=== PATIENT | male | born 1960 | race American Indian/Alaskan Native ===

== ENCOUNTER 2021-04-13 09:29 | Inpatient (IN) | payer MEDICARE ==
--- NOTE | 2021-04-13 09:57 | Emergency Department Report ---
HPI - General Chief Complaint: Altered Mental Status Time Seen by Provider: 04/13/21 09:45 - HPI HPI: This is a 60-year-old male who presents to the emergency department from home for evaluation of altered mental status. This patient is not known to myself and does not appear to have been in our emergency department previously. The patient presents with discharge instructions from [facility] in which she was discharged on 04/08. 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 He has a Vas-Cath to the right upper chest and he has some discharge instructions regarding a "draining wound on the chest." The patient has a colostomy. He is currently AAO x1 to name only. I spoke to the patient's spouse, who is now at bedside, and he was able to give me further information. Patient has a history of COPD but is not oxygen dependent. He has a history of hypertension. The patient went to [facility] recently for evaluation by the patient's general surgeon for the possibility of reversal of his colostomy, that has been there for about 2 to 3 years since a previous partial bowel resection after bowel obstruction. The patient had a previous right upper extremity PICC line in place that was placed earlier at [facility] for TPN and medication administration. However, it appears that the patient may have had an infected PICC line and ended up at [place] for sepsis. The PICC line was removed and the right chest port was placed. The patient's says that he is usually AAO x3 and does ambulate. Starting Monday night and into Monday, the patient started to have progressivel y worsening altered mental status. ED Past Medical Hx - Past Medical History Previous Medical History?: Yes - Social History Smoking Status: Current Every Day Smoker - Medications Home Medications: Home Medications Medication Instructions Recorded Confirmed Last Taken Type Gabapentin [Neurontin] 800 mg PO TID 04/13/21 04/13/21 Unknown History LORazepam [Ativan] 1 mg PO BID 04/13/21 04/13/21 Unknown History Meloxicam [Mobic] 15 mg PO BID 04/13/21 04/13/21 Unknown History Morphine [Morphine TAB] 30 mg PO Q4HR 04/13/21 04/13/21 Unknown History Omeprazole 40 mg PO QDAY 04/13/21 04/13/21 Unknown History Pantoprazole [Protonix] 40 mg PO QDAY 04/13/21 04/13/21 Unknown History Sucralfate [Carafate] 1 gm PO ACHS 04/13/21 04/13/21 Unknown History Zolpidem [Ambien] 5 mg PO QHS PRN 04/13/21 04/13/21 Unknown History hydrOXYzine HCL [Atarax] 25 mg PO Q6HR PRN 04/13/21 04/13/21 Unknown History labetaloL [Labetalol 200mg TAB] 200 mg PO BID 04/13/21 04/13/21 Unknown History methOCARBAMOL [Robaxin TAB] 750 mg PO BID 04/13/21 04/13/21 Unknown History ED Review of Systems ROS: Stated complaint: ALTERED MENTAL STATUS Other details as noted in HPI Comment: Unobtainable due to pts medical conditions Physical Exam - Physical Exam Vital Signs: Vital Signs 04/13/21 09:44 Temperature 98.6 F Pulse Rate 100 H Respiratory 13 Rate Blood Pressure 119/84 [Left] O2 Sat by Pulse 99 Oximetry Physical Exam: GENERAL: The patient is frail and ill-appearing. HENT: Normocephalic. Atraumatic. Patient has moist mucous membranes. EYES: Extraocular motions are intact. Pupils equal reactive to light bilaterally. NECK: Supple. Trachea is midline. CHEST/LUNGS: Clear to auscultation. There is no respiratory distress noted. HEART/CARDIOVASCULAR: Regular. There is no tachycardia. There is no murmur. ABDOMEN: Abdomen is soft, nontender. Patient has normal bowel sounds. There is no abdominal distention. SKIN: Skin is warm and dry. NEURO: Patient is awake but confused, AAO x1. Follows some commands. MUSCULOSKELETAL: There is no obvious deformity. ED Course Vital Signs 04/13/21 09:44 Temperature 98.6 F Pulse Rate 100 H Respiratory 13 Rate Blood Pressure 119/84 [Left] O2 Sat by Pulse 99 Oximetry ED Medical Decision Making - Lab Data Result diagrams: 04/13/21 10:28 04/13/21 10:28 Lab Results 04/13/21 04/13/21 04/13/21 Range/Units 10:28 10:28 10:28 WBC 6.7 (4.5-11.0) K/mm3 RBC 4.90 (3.65-5.03) M/mm3 Hgb 12.4 (11.8-15.2) gm/dl Hct 38.8 (35.5-45.6) % MCV 79 L (84-94) fl MCH 25 L (28-32) pg MCHC 32 (32-34) % RDW 19.7 H (13.2-15.2) % Plt Count 321 (140-440) K/mm3 Lymph % (Auto) 37.0 H (13.4-35.0) % [place] % (Auto) 15.9 H (0.0-7.3) % Eos % (Auto) 1.4 (0.0-4.3) % Baso % (Auto) 0.8 (0.0-1.8) % Lymph # (Auto) 2.5 (1.2-5.4) K/mm3 [place] # (Auto) 1.1 H (0.0-0.8) K/mm3 Eos # (Auto) 0.1 (0.0-0.4) K/mm3 Baso # (Auto) 0.1 (0.0-0.1) K/mm3 Seg Neutrophils % 44.9 (40.0-70.0) % Seg Neutrophils # 3.0 (1.8-7.7) K/mm3 PT 13.4 (12.2-14.9) Sec. INR 0.96 (0.87-1.13) Sodium 139 (137-145) mmol/L Potassium 5.1 H (3.6-5.0) mmol/L Chloride 99.9 (98-107) mmol/L Carbon Dioxide 23 (22-30) mmol/L Anion Gap 21 mmol/L BUN 19 (9-20) mg/dL Creatinine 1.2 (0.8-1.3) mg/dL Estimated GFR > 60 ml/min BUN/Creatinine Ratio 16 % Glucose 114 H (75-100) mg/dL Lactic Acid (0.7-2.0) mmol/L Calcium 10.2 (8.4-10.2) mg/dL Total Bilirubin 0.30 (0.1-1.2) mg/dL AST 33 (5-40) units/L ALT 27 (7-56) units/L Alkaline Phosphatase 225 H (35-129) units/L Ammonia (25-60) umol/L Total Creatine Kinase 73 (55-170) units/L Total Protein 9.4 H (6.3-8.2) g/dL Albumin 4.0 (3.9-5) g/dL Albumin/Globulin Ratio 0.7 % TSH (0.270-4.200) mlU/mL Plasma/Serum Alcohol (0-0.07) % 04/13/21 04/13/21 04/13/21 Range/Units 10:28 10:28 10:28 WBC (4.5-11.0) K/mm3 RBC (3.65-5.03) M/mm3 Hgb (11.8-15.2) gm/dl Hct (35.5-45.6) % MCV (84-94) fl MCH (28-32) pg MCHC (32-34) % RDW (13.2-15.2) % Plt Count (140-440) K/mm3 Lymph % (Auto) (13.4-35.0) % [place] % (Auto) (0.0-7.3) % Eos % (Auto) (0.0-4.3) % Baso % (Auto) (0.0-1.8) % Lymph # (Auto) (1.2-5.4) K/mm3 [place] # (Auto) (0.0-0.8) K/mm3 Eos # (Auto) (0.0-0.4) K/mm3 Baso # (Auto) (0.0-0.1) K/mm3 Seg Neutrophils % (40.0-70.0) % Seg Neutrophils # (1.8-7.7) K/mm3 PT (12.2-14.9) Sec. INR (0.87-1.13) Sodium (137-145) mmol/L Potassium (3.6-5.0) mmol/L Chloride (98-107) mmol/L Carbon Dioxide (22-30) mmol/L Anion Gap mmol/L BUN (9-20) mg/dL Creatinine (0.8-1.3) mg/dL Estimated GFR ml/min BUN/Creatinine Ratio % Glucose (75-100) mg/dL Lactic Acid 1.40 (0.7-2.0) mmol/L Calcium (8.4-10.2) mg/dL Total Bilirubin (0.1-1.2) mg/dL AST (5-40) units/L ALT (7-56) units/L Alkaline Phosphatase (35-129) units/L Ammonia 42.0 (25-60) umol/L Total Creatine Kinase (55-170) units/L Total Protein (6.3-8.2) g/dL Albumin (3.9-5) g/dL Albumin/Globulin Ratio % TSH 0.614 (0.270-4.200) mlU/mL Plasma/Serum Alcohol (0-0.07) % 04/13/ Range/Units 10:28 WBC (4.5-11.0) K/mm3 RBC (3.65-5.03) M/mm3 Hgb (11.8-15.2) gm/dl Hct (35.5-45.6) % MCV (84-94) fl MCH (28-32) pg MCHC (32-34) % RDW (13.2-15.2) % Plt Count (140-440) K/mm3 Lymph % (Auto) (13.4-35.0) % [place] % (Auto) (0.0-7.3) % Eos % (Auto) (0.0-4.3) % Baso % (Auto) (0.0-1.8) % Lymph # (Auto) (1.2-5.4) K/mm3 [place] # (Auto) (0.0-0.8) K/mm3 Eos # (Auto) (0.0-0.4) K/mm3 Baso # (Auto) (0.0-0.1) K/mm3 Seg Neutrophils % (40.0-70.0) % Seg Neutrophils # (1.8-7.7) K/mm3 PT (12.2-14.9) Sec. INR (0.87-1.13) Sodium (137-145) mmol/L Potassium (3.6-5.0) mmol/L Chloride (98-107) mmol/L Carbon Dioxide (22-30) mmol/L Anion Gap mmol/L BUN (9-20) mg/dL Creatinine (0.8-1.3) mg/dL Estimated GFR ml/min BUN/Creatinine Ratio % Glucose (75-100) mg/dL Lactic Acid (0.7-2.0) mmol/L Calcium (8.4-10.2) mg/dL Total Bilirubin (0.1-1.2) mg/dL AST (5-40) units/L ALT (7-56) units/L Alkaline Phosphatase (35-129) units/L Ammonia (25-60) umol/L Total Creatine Kinase (55-170) units/L Total Protein (6.3-8.2) g/dL Albumin (3.9-5) g/dL Albumin/Globulin Ratio % TSH (0.270-4.200) mlU/mL Plasma/Serum Alcohol < 0.01 (0-0.07) % - Radiology Data Radiology results: report reviewed, image reviewed interpreted by me: Chest x-ray does not show any acute process. There are no pleural effusions, obvious pneumonia and there is no pneumothorax. No widened mediastinum. CT head/brain wo con INDICATION: Altered mental status. TECHNIQUE: All CT scans at this location are performed using CT dose reduction for ALARA by means of automated exposure control. COMPARISON: None available. FINDINGS: There is no evidence of hemorrhage, hydrocephalus, brain edema, or mass effect/mass lesion. There is overall normal brain formation and brain volume for the patient's age. Ventricular and cisternal/sulcal size is normal for age. The included paranasal sinuses and mastoid air cells are clear. The orbits appear unremarkable. IMPRESSION: 1. No acute findings. - Medical Decision Making This patient presents with altered mental status that has been going on over the past few days. The patient's is at bedside and confirms that the patient is altered from his baseline mental status mentation. CT scan of the head without contrast does not show any hemorrhage, large vessel occlusion, or any other acute process. Chest x-ray does not show any pneumonia, pleural effusions, widened mediastinum, pneumothorax, or any other acute process. So far the patient's labs have been mostly unremarkable including CBC, metabolic panel, normal thyroid function, negative troponin, Normal ammonia level. We are still waiting for a urine sample for urinalysis and UDS. The patient will be admitted to the hospital for further evaluation of his altered mental status and/or encephalopathy, and has been accepted for admission by the hospitalist, Dr. Hernandez. Critical Care Time: No Critical care attestation.: If time is entered above; I have spent that time in minutes in the direct care of this critically ill patient, excluding procedure time. ED Disposition Clinical Impression: Encephalopathy acute Altered mental status Qualifiers: Altered mental status type: unspecified Qualified Code(s): R41.82 - Altered mental status, unspecified Disposition: DC09 OP ADMIT IP TO THIS HOSP Is pt being admited?: Yes Condition: Serious Time of Disposition: 13:35
[2021-04-13 10:49] LABS: Basophils # (Auto) 0.1 K/mm3 (0.0-0.1); Basophils % (Auto) 0.8 % (0.0-1.8); Eosinophils # (Auto) 0.1 K/mm3 (0.0-0.4); Eosinophils % (Auto) 1.4 % (0.0-4.3); Hematocrit 38.8 % (35.5-45.6); Hemoglobin 12.4 gm/dl (11.8-15.2); Lymphocytes # (Auto) 2.5 K/mm3 (1.2-5.4); Mean Corpuscular HGB Conc 32 % (32-34); Mean Corpuscular Volume 79 fl (84-94); Monocytes # (Auto) 1.1 K/mm3 (0.0-0.8); Monocytes % (Auto) 15.9 % (0.0-7.3); Platelet Count 321 K/mm3 (140-440); Red Cell Distribution Width 19.7 % (13.2-15.2)
[2021-04-13 10:59] LABS: INR 0.96 (0.87-1.13)
[2021-04-13 11:11] LABS: Alanine Aminotransferase 27 units/L (7-56); BUN/Creatinine Ratio 16; Blood Urea Nitrogen 19 mg/dL (9-20); Calcium 10.2 mg/dL (8.4-10.2); Hemolysis Index 35
--- NOTE | 2021-04-13 11:18 | Cat Scan Report ---
CT head/brain wo con INDICATION: Altered mental status. TECHNIQUE: All CT scans at this location are performed using CT dose reduction for ALARA by means of automated e xposure control. COMPARISON: None available. FINDINGS: There is no evidence of hemorrhage, hydrocephalus, brain edema, or mass effect/mass lesion. There is overall normal brain formation and brain volume for the patient's age. Ventricular and cisternal/sulc al size is normal for age. The included paranasal sinuses and mastoid air cells are clear. The orbits appear unremarkable. IMPRESSION: 1. No acute findings. Signer Name: Monty Scott MD Signed: 04/13/2021 11:13 AM Workstation Name: [id number]
[2021-04-13] MEDS ORDERED: SODIUM CHLORIDE 0.9% 1000 ML 1,000 ML IV ONE (11:24)
[2021-04-13] MEDS ORDERED: LORazepam 2 MG/ML VIAL IV ONE (14:08)
--- NOTE | 2021-04-13 15:54 | XRay Report ---
CHEST 1 VIEW INDICATION / CLINICAL INFORMATION: Altered mental status. COMPARISON: None available. FINDINGS: SUPPORT DEVICES: Right central venous catheter HEART / MEDIASTINUM: No significant abnormality. LUNGS / PLEURA: No significant pulmonary or pleural abnormality. No pneumothorax. ADDITIONAL FINDINGS: No significant additional findings. IMPRESSION: No acute pulmonary or pleural abnormality Signer Name: Gino Mora MD FACR Signed: 04/13/2021 3:49 PM Workstation Name: [id number]
[2021-04-13] MEDS ORDERED: LORazepam 2 MG/ML VIAL ONE (16:24)
[2021-04-13] MEDS ORDERED: hydrOXYzine HCL 25 MG TAB PO PRN (23:07)
--- NOTE | 2021-04-13 23:11 | History and Physical Report ---
History of Present Illness Date of examination: 04/13/21 Date of admission: 04/13/21 13:35 Chief complaint: Altered mental status for 48 hours History of present illness: 60-year-old male presents to emergency department from home for evaluation of altered mental status. Patient has a history of COPD and hypertension. Patient is not on home oxygen. Patient had major bowel resection about 3 years ago. History is not clear but it appears to be small bowel resection secondary to small bowel obstruction and infection. Patient has a ileostomy/colostomy bag. Patient has TPN and medication administration via new ". Patient was recently treated at [place] for line sepsis and PICC line was removed on the right chest post was placed. Patient is morphine tablets 30 mg every 4 hours gabapentin 800 mg 3 times a day and zolpidem 5 mg nightly as needed. Patient is apparently altered and oriented x1 for the last 48 hours. Brought in because of worsening mental status. Patient is alert but not able to tell time place etc. Oriented to his spouse to some extent.. His pulses at the bedside and produce some history. No fever or chills. No urinary incontinence. No dysuria. No cough. Decline in mental status. Patient was apparently able to ambulate till 48 hours ago. The male standing next to the bedside claims that he is the for the last 7 years. - Past Medical History --Previous Medical History?: Yes COPD, hypertension Small bowel resection Malnutrition Chronic pain -Past surgical history --Extensive bowel resection --Right chest port placement - Social History Smoking Status: Current Every Day Smoker -Family history hypertension - Medications Home Medications: Home Medications Medication Instructions Recorded Confirmed Last Taken Type Gabapentin 60-year-old 60-year-old male 800 mg PO TID 04/13/21 04/13/21 Unknown History LORazepam [Ativan] 1 mg PO BID 04/13/21 04/13/21 Unknown History Meloxicam [Mobic] 15 mg PO BID 04/13/21 04/13/21 Unknown History Morphine [Morphine TAB] 30 mg PO Q4HR 04/13/21 04/13/21 Unknown History Omeprazole 40 mg PO QDAY 04/13/21 04/13/21 Unknown History Pantoprazole [Protonix] 40 mg PO QDAY 04/13/21 04/13/21 Unknown History Sucralfate [Carafate] 1 gm PO ACHS 04/13/21 04/13/21 Unknown History Zolpidem [Ambien] 5 mg PO QHS PRN 04/13/21 04/13/21 Unknown History hydrOXYzine HCL [Atarax] 25 mg PO Q6HR PRN 04/13/21 04/13/21 Unknown History labetaloL [Labetalol 200mg TAB] 200 mg PO BID 04/13/21 04/13/21 Unknown History methOCARBAMOL [Robaxin TAB] 750 mg PO BID 04/13/21 04/13/21 Unknown History Review of Systems ROS: Constitutional no weight loss or weight gain no fever or chills HEENT no sore throat no post nasal drip no diplopia Neck no neck stiffness no lymph gland enlargement Chest and lungs no shortness of breath cough or wheezing CVS no chest pain no diaphoresis no palpitations GI no nausea no vomiting no diarrhea Genitourinary system no dysuria no flank pain Musculoskeletal system no muscle pains no joint pains [employer] altered sensorium and unable to walk Skin no rash no itching Psychiatric no depression no homicidal or suicidal tendencies Hematologic no lymphedema or bruising Endocrine no polydipsia no polyuria no cold intolerance no heat intolerance Medications and Allergies Allergies Allergy/AdvReac Type Severity Reaction Status Date / Time No Known Allergies Allergy Unverified 04/14/21 03:58 Home Medications Medication Instructions Recorded Confirmed Last Taken Type Gabapentin [Neurontin] 800 mg PO TID 04/13/21 04/13/21 Unknown History LORazepam [Ativan] 1 mg PO BID 04/13/21 04/13/21 Unknown History Meloxicam [Mobic] 15 mg PO BID 04/13/21 04/13/21 Unknown History Morphine [Morphine TAB] 30 mg PO Q4HR 04/13/21 04/13/21 Unknown History Omeprazole 40 mg PO QDAY 04/13/21 04/13/21 Unknown History Pantoprazole [Protonix] 40 mg PO QDAY 04/13/21 04/13/21 Unknown History Sucralfate [Carafate] 1 gm PO ACHS 04/13/21 04/13/21 Unknown History Zolpidem [Ambien] 5 mg PO QHS PRN 04/13/21 04/13/21 Unknown History hydrOXYzine HCL [Atarax] 25 mg PO Q6HR PRN 04/13/21 04/13/21 Unknown History labetaloL [Labetalol 200mg TAB] 200 mg PO BID 04/13/21 04/13/21 Unknown History methOCARBAMOL [Robaxin TAB] 750 mg PO BID 04/13/21 04/13/21 Unknown History Active Meds: Active Medications Hydroxyzine HCl (Hydroxyzine Hcl 25 Mg Tab) 25 mg PO Q6HR PRN PRN Reason: Itching Labetalol HCl (Labetalol 200 Mg Tab) 200 mg PO BID JONATHAN Miscellaneous Medication (Gabapentin [Neurontin]) 800 mg PO TID JONATHAN Pantoprazole Sodium (Pantoprazole 40 Mg Tab) 40 mg PO QDAY JONATHAN Sucralfate (Sucralfate 1 Gm Tab) 1 gm PO ACHS JONATHAN Zolpidem Tartrate (Zolpidem 5 Mg Tab) 5 mg PO QHS PRN PRN Reason: Sleep Exam - Constitutional Vitals: Temp Pulse Resp BP Pulse Ox 98.6 F 101 H 20 135/81 98 04/13/21 09:44 04/13/21 10:30 04/13/21 17:14 04/13/21 13:46 04/13/21 17:14 General appearance: Present: no acute distress, well-nourished - EENT Eyes: Present: PERRL ENT: hearing intact, clear oral mucosa - Neck Neck: Present: supple, normal ROM - Respiratory Respiratory effort: normal Respiratory: bilateral: CTA (Right chest wall port) - Cardiovascular Heart rate: 78 Rhythm: regular Heart Sounds: Present: S1 & S2. Absent: rub, click - Extremities Extremities: no ischemia, pulses symmetrical, No edema Peripheral Pulses: within normal limits - Abdominal General gastrointestinal: Present: soft, non-tender, non-distended, normal bowel sounds, other (Ileostomy/colostomy bag present) Male genitourinary: Present: normal - Integumentary Integumentary: Present: clear, warm, dry - Musculoskeletal Musculoskeletal: gait normal, strength equal bilaterally - Psychiatric Psychiatric: appropriate mood/affect, intact judgment & insight - Neurologic Neurologic: CNII-XII intact, moves all extremities Results - Labs CBC & Chem 7: 04/13/21 10:28 04/13/21 10:28 Labs: Laboratory Last Values WBC 6.7 K/mm3 (4.5-11.0) 04/13/21 10:28 RBC 4.90 M/mm3 (3.65-5.03) 04/13/21 10:28 Hgb 12.4 gm/dl (11.8-15.2) 04/13/21 10:28 Hct 38.8 % (35.5-45.6) 04/13/21 10:28 MCV 79 fl (84-94) L 04/13/21 10:28 MCH 25 pg (28-32) L 04/13/21 10:28 MCHC 32 % (32-34) 04/13/21 10:28 RDW 19.7 % (13.2-15.2) H 04/13/21 10:28 Plt Count 321 K/mm3 (140-440) 04/13/21 10:28 Lymph % (Auto) 37.0 % (13.4-35.0) H 04/13/21 10:28 [place] % (Auto) 15.9 % (0.0-7.3) H 04/13/21 10:28 Eos % (Auto) 1.4 % (0.0-4.3) 04/13/21 10:28 Baso % (Auto) 0.8 % (0.0-1.8) 04/13/21 10:28 Lymph # (Auto) 2.5 K/mm3 (1.2-5.4) 04/13/21 10:28 [place] # (Auto) 1.1 K/mm3 (0.0-0.8) H 04/13/21 10:28 Eos # (Auto) 0.1 K/mm3 (0.0-0.4) 04/13/21 10:28 Baso # (Auto) 0.1 K/mm3 (0.0-0.1) 04/13/21 10:28 Seg Neutrophils % 44.9 % (40.0-70.0) 04/13/21 10:28 Seg Neutrophils # 3.0 K/mm3 (1.8-7.7) 04/13/21 10:28 PT 13.4 Sec. (12.2-14.9) 04/13/21 10:28 INR 0.96 (0.87-1.13) 04/13/21 10:28 Sodium 139 mmol/L (137-145) 04/13/21 10:28 Potassium 5.1 mmol/L (3.6-5.0) H 04/13/21 10:28 Chloride 99.9 mmol/L (98-107) 04/13/21 10:28 Carbon Dioxide 23 mmol/L (22-30) 04/13/21 10:28 Anion Gap 21 mmol/L 04/13/21 10:28 BUN 19 mg/dL (9-20) 04/13/21 10:28 Creatinine 1.2 mg/dL (0.8-1.3) 04/13/21 10:28 Estimated GFR > 60 ml/min 04/13/21 10:28 BUN/Creatinine Ratio 16 % 04/13/21 10:28 Glucose 114 mg/dL (75-100) H 04/13/21 10:28 Lactic Acid 1.40 mmol/L (0.7-2.0) 04/13/21 10:28 Calcium 10.2 mg/dL (8.4-10.2) 04/13/21 10:28 Total Bilirubin 0.30 mg/dL (0.1-1.2) 04/13/21 10:28 AST 33 units/L (5-40) 04/13/21 10:28 ALT 27 units/L (7-56) 04/13/21 10:28 Alkaline Phosphatase 225 units/L (35-129) H 04/13/21 10:28 Ammonia 42.0 umol/L (25-60) 04/13/21 10:28 Total Creatine Kinase 73 units/L (55-170) 04/13/21 10:28 Total Protein 9.4 g/dL (6.3-8.2) H 04/13/21 10:28 Albumin 4.0 g/dL (3.9-5) 04/13/21 10:28 Albumin/Globulin Ratio 0.7 % 04/13/21 10:28 TSH 0.614 mlU/mL (0.270-4.200) 04/13/21 10:28 Plasma/Serum Alcohol < 0.01 % (0-0.07) 04/13/21 10:28 Short CBC 04/13/21 Range/Units 10:28 WBC 6.7 (4.5-11.0) K/mm3 Hgb 12.4 (11.8-15.2) gm/dl Hct 38.8 (35.5-45.6) % Plt Count 321 (140-440) K/mm3 BMP 04/13/21 10:28 Sodium 139 Potassium 5.1 H Chloride 99.9 Carbon Dioxide 23 BUN 19 Creatinine 1.2 Glucose 114 H Calcium 10.2 Cardiac Enzymes 04/13/21 Range/Units 10:28 Total Creatine Kinase 73 (55-170) units/L Liver Function 04/13/21 Range/Units 10:28 Total Bilirubin 0.30 (0.1-1.2) mg/dL AST 33 (5-40) units/L ALT 27 (7-56) units/L Alkaline Phosphatase 225 H (35-129) units/L Albumin 4.0 (3.9-5) g/dL Urine 04/14/21 Range/Units Unknown Urine Color Yellow (Yellow) Urine pH 6.0 (5.0-7.0) Ur Specific [place] 1.019 (1.003-1.030) Urine Protein <15 mg/dl (Negative) mg/dL Urine Glucose (UA) Neg (Negative) mg/dL - Imaging and Cardiology Chest x-ray: report reviewed CT Scan - head: report reviewed Imaging and Cardiology: Head CT No acute findings Chest x-ray No acute pulmonary or pleural abnormality Young/IV: Voiding Method Condom Catheter Assessment and Plan Advance Directives: Yes (Full code) VTE prophylaxis?: Chemical Plan of care discussed with patient/family: Yes - Patient Problems (1) Encephalopathy acute Current Visit: Yes Status: Acute Plan to address problem: Probably secondary to excessive opiates and Gabapentin. Patient is on morphine 30 mg every 4 hours No clear indication for being on morphine 30 mg every 4 hours Will hold opiates for now IV Tordol for now for moderate pain IV Dilaudid 0.5 mg every 3 for severe pain [facility] protocol for now for withdrawal symptoms Mental health/psych consult No neuro consult at this time Gabapentin dose is decreased from 8 0 mg 3 times a day to 400 mg 3 times a day Physical therapy were requested Patient may need placement for opiate dependence No signs of sepsis No antibiotics were started (2) Opiate dependence Current Visit: Yes Status: Chronic Qualifiers: Complication of substance-induced condition: with perceptual disturbance Plan to address problem: Patient was not started on morphine 30 mg every 4 hours. Patient will be managed with IV Toradol for moderate pain and IV Dilaudid for s evere pain. Gabapentin also decreased from 800 mg 3 times a day to 400 mg 3 times a day. We will get mental health/psych consult. Regarding possible opiate dependence (3) Hyperkalemia Current Visit: Yes Status: Acute Plan to address problem: Mild IV Calcium gluconate for now (4) Hypertension Current Visit: Yes Status: Chronic Qualifiers: Hypertension type: essential hypertension Qualified Code(s): I10 - Essential (primary) hypertension Plan to address problem: Continue labetalol and adjust medications (5) COPD (chronic obstructive pulmonary disease) Current Visit: Yes Status: Chronic Qualifiers: Emphysema type: unspecified Plan to address problem: On DuoNebs as needed (6) Microcytosis Current Visit: Yes Status: Chronic Plan to address problem: Check iron levels (7) Malnutrition Current Visit: Yes Status: Chronic Qualifiers: Protein-calorie malnutrition severity: unspecified severity Plan to address problem: Patient is on TPN because of extensive small bowel resection Dietitian consult requested (8) DVT prophylaxis Current Visit: Yes Status: Acute Plan to address problem: On Heparin
[2021-04-13] MEDS ORDERED: ONDANSETRON 4 MG/2 ML INJ IV PRN (23:15)
[2021-04-13] MEDS ORDERED: METOCLOPRAMIDE 10 MG/2 ML INJ IV PRN (23:15)
[2021-04-13] MEDS ORDERED: ACETAMINOPHEN 325 MG TAB PO PRN (23:15)
[2021-04-13] MEDS: ZOLPIDEM 5 MG TAB PO PRN (23:24)
[2021-04-13] MEDS ORDERED: D5W/0.9% NACL 1,000 ML IV SCH (23:45)
[2021-04-14] MEDS: ZOLPIDEM 5 MG TAB PO PRN (00:25)
[2021-04-14] MEDS ORDERED: CALCIUM GLUCONATE 2,000 MG in SODIUM CHLORIDE 0.9% 100 ML IV ONE (00:36)
[2021-04-14 05:56] LABS: Bilirubin,Urine NEG (Negative); Blood,Urine NEG (Negative); Color,Urine Yellow (Yellow); Mucus,Urine FEW /HPF; Protein,Urine <15 mg/dL mg/dL (Negative); Urobilinogen,Urine < 2.0 mg/dL (<2.0)
[2021-04-14] MEDS ORDERED: LORazepam 2 MG/ML VIAL IV PRN (06:02)
[2021-04-14 06:03] LABS: Amphetamine Screen,Urine Negative; Benzodiazepines Screen,Urine Negative; Cannabinoid Screen,Urine Negative; Cocaine Screen,Urine Negative; Methadone Screen,Urine Negative; Opiate Screen,Urine Negative
[2021-04-14] MEDS ORDERED: HYDROmorphone 1 MG/1 ML INJ IV PRN (06:03)
--- NOTE | 2021-04-14 07:19 | Progress Note ---
Assessment and Plan Assessment and plan: History of present illness: 60-year-old male presents to emergency department from home for evaluation of altered mental status. Patient has a history of COPD and hypertension. Patient is not on home oxygen. Patient had major bowel resection about 3 years ago. History is not clear but it appears to be small bowel resection secondary to small bowel obstruction and infection. Patient has a ileostomy/colostomy bag. Patient has TPN and medication administration via new ". Patient was recently treated at [place] for line sepsis and PICC line was removed on the right chest post was placed. Patient is morphine tablets 30 mg every 4 hours gabapentin 800 mg 3 times a day and zolpidem 5 mg nightly as needed. Patient is apparently altered and oriented x1 for the last 48 hours. Brought in because of worsening mental status. Patient is alert but not able to tell time place etc. Oriented to his spouse to some extent.. His pulses at the bedside and produce some history. No fever or chills. No urinary incontinence. No dysuria. No cough. Decline in mental status. Patient was apparently able to ambulate till 48 hours ago. The male standing next to the bedside claims that he is the for the last 7 years. (1) Encephalopathy acute Current Visit: Yes Status: Acute Plan to address problem: Probably secondary to excessive opiates and Gabapentin. Patient is on morphine 30 mg every 4 hours No clear indication for being on morphine 30 mg every 4 hours Will hold opiates for now IV Tordol for now for moderate pain IV Dilaudid 0.5 mg every 3 for severe pain [facility] protocol for now for withdrawal symptoms Mental health/psych consult No neuro consult at this time Gabapentin dose is decreased from 8 0 mg 3 times a day to 400 mg 3 times a day Physical therapy were requested Patient may need placement for opiate dependence No signs of sepsis No antibiotics were started (2) Opiate dependence Current Visit: Yes Status: Chronic Qualifiers: Complication of substance-induced condition: with perceptual disturbance Plan to address problem: Patient was not started on morphine 30 mg every 4 hours. Patient will be managed with IV Toradol for moderate pain and IV Dilaudid for severe pain. Gabapentin also decreased from 800 mg 3 times a day to 400 mg 3 times a day. We will get mental health/psych consult. Regarding possible opiate dependence (3) Hyperkalemia Current Visit: Yes Status: Acute Plan to address problem: Mild IV Calcium gluconate for now (4) Hypertension Current Visit: Yes Status: Chronic Qualifiers: Hypertension type: essential hypertension Qualified Code(s): I10 - Essential (primary) hypertension Plan to address problem: Continue labetalol and adjust medications (5) COPD (chronic obstructive pulmonary disease) Current Visit: Yes Status: Chronic Qualifiers: Emphysema type: unspecified Plan to address problem: On DuoNebs as needed (6) Microcytosis Current Visit: Yes Status: Chronic Plan to address problem: Check iron levels (7) Malnutrition Current Visit: Yes Status: Chronic Qualifiers: Protein-calorie malnutrition severity: unspecified severity Plan to address problem: Patient is on TPN because of extensive small bowel resection Dietitian consult requested (8) DVT prophylaxis Current Visit: Yes Status: Acute Plan to address problem: On Heparin 04/14/2021 -Continue with TPN, nutritional supplementation. Dietitian consulted -PT OT evaluation and his is open for rehab if needed -We will continue to monitor History Interval history: Patient was seen and evaluated at the bedside Patient was confused Hospitalist Physical - Physical exam Narrative exam: Not in cardiopulmonary distress. The patient appeared emaciated Vital signs as documented. Head exam is unremarkable. No scleral icterus . Neck is without jugular venous distension, thyromegaly, or carotid bruits. Chest; right chest port Lungs are clear to auscultation. Cardiac exam reveals regular rate and Rhythm. Abdominal exam reveals normal bowel sounds, nontender, no organomegaly. Colostomy bag in place. Extremities are nonedematous and both femoral and pedal pulses are normal. 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 - Constitutional Vitals: Temp Pulse Resp BP Pulse Ox 97.6 F 103 H 22 144/97 100 04/14/21 05:14 04/14/21 05:15 04/14/21 05:15 04/14/21 05:15 04/14/21 05:15 General appearance: Present: no acute distress, well-nourished Results - Labs CBC & Chem 7: 04/13/21 10:28 04/13/21 10:28 Labs: Laboratory Last Values WBC 6.7 K/mm3 (4.5-11.0) 04/13/21 10:28 RBC 4.90 M/mm3 (3.65-5.03) 04/13/21 10:28 Hgb 12.4 gm/dl (11.8-15.2) 04/13/21 10:28 Hct 38.8 % (35.5-45.6) 04/13/21 10:28 MCV 79 fl (84-94) L 04/13/21 10:28 MCH 25 pg (28-32) L 04/13/21 10:28 MCHC 32 % (32-34) 04/13/21 10:28 RDW 19.7 % (13.2-15.2) H 04/13/21 10:28 Plt Count 321 K/mm3 (140-440) 04/13/21 10:28 Lymph % (Auto) 37.0 % (13.4-35.0) H 04/13/21 10:28 [place] % (Auto) 15.9 % (0.0-7.3) H 04/13/21 10:28 Eos % (Auto) 1.4 % (0.0-4.3) 04/13/21 10:28 Baso % (Auto) 0.8 % (0.0-1.8) 04/13/21 10:28 Lymph # (Auto) 2.5 K/mm3 (1.2-5.4) 04/13/21 10:28 [place] # (Auto) 1.1 K/mm3 (0.0-0.8) H 04/13/21 10:28 Eos # (Auto) 0.1 K/mm3 (0.0-0.4) 04/13/21 10:28 Baso # (Auto) 0.1 K/mm3 (0.0-0.1) 04/13/21 10:28 Seg Neutrophils % 44.9 % (40.0-70.0) 04/13/21 10:28 Seg Neutrophils # 3.0 K/mm3 (1.8-7.7) 04/13/21 10:28 PT 13.4 Sec. (12.2-14.9) 04/13/21 10:28 INR 0.96 (0.87-1.13) 04/13/21 10:28 Sodium 139 mmol/L (137-145) 04/13/21 10:28 Potassium 5.1 mmol/L (3.6-5.0) H 04/13/21 10:28 Chloride 99.9 mmol/L (98-107) 04/13/21 10:28 Carbon Dioxide 23 mmol/L (22-30) 04/13/21 10:28 Anion Gap 21 mmol/L 04/13/21 10:28 BUN 19 mg/dL (9-20) 04/13/21 10:28 Creatinine 1.2 mg/dL (0.8-1.3) 04/13/21 10:28 Estimated GFR > 60 ml/min 04/13/21 10:28 BUN/Creatinine Ratio 16 % 04/13/21 10:28 Glucose 114 mg/dL (75-100) H 04/13/21 10:28 Lactic Acid 1.40 mmol/L (0.7-2.0) 04/13/21 10:28 Calcium 10.2 mg/dL (8.4-10.2) 04/13/21 10:28 Total Bilirubin 0.30 mg/dL (0.1-1.2) 04/13/21 10:28 AST 33 units/L (5-40) 04/13/21 10:28 ALT 27 units/L (7-56) 04/13/21 10:28 Alkaline Phosphatase 225 units/L (35-129) H 04/13/21 10:28 Ammonia 42.0 umol/L (25-60) 04/13/21 10:28 Total Creatine Kinase 73 units/L (55-170) 04/13/21 10:28 Total Protein 9.4 g/dL (6.3-8.2) H 04/13/21 10:28 Albumin 4.0 g/dL (3.9-5) 04/13/21 10:28 Albumin/Globulin Ratio 0.7 % 04/13/21 10:28 TSH 0.614 mlU/mL (0.270-4.200) 04/13/21 10:28 Urine Color Yellow (Yellow) 04/14/21 Unknown Urine Turbidity Clear (Clear) 04/14/21 Unknown Urine pH 6.0 (5.0-7.0) 04/14/21 Unknown Ur Specific [place] 1.019 (1.003-1.030) 04/14/21 Unknown Urine Protein <15 mg/dl mg/dL (Negative) 04/14/21 Unknown Urine Glucose (UA) Neg mg/dL (Negative) 04/14/21 Unknown Urine Ketones Neg mg/dL (Negative) 04/14/21 Unknown Urine Blood Neg (Negative) 04/14/21 Unknown Urine Nitrite Neg (Negative) 04/14/21 Unknown Urine Bilirubin Neg (Negative) 04/14/21 Unknown Urine Urobilinogen < 2.0 mg/dL (<2.0) 04/14/21 Unknown Ur Leukocyte Esterase Neg (Negative) 04/14/21 Unknown Urine WBC (Auto) 2.0 /HPF (0.0-6.0) 04/14/21 Unknown Urine RBC (Auto) 4.0 /HPF (0.0-6.0) 04/14/21 Unknown U Epithel Cells (Auto) 2.0 /HPF (0-13.0) 04/14/21 Unknown Urine Mucus Few /HPF 04/14/21 Unknown Urine Opiates Screen Negative 04/14/21 Unknown Urine Methadone Screen Negative 04/14/21 Unknown Ur Barbiturates Screen Presumptive positive 04/14/21 Unknown Ur Phencyclidine Scrn Negative 04/14/21 Unknown Ur Amphetamines Screen Negative 04/14/21 Unknown U Benzodiazepines Scrn Negative 04/14/21 Unknown Urine Cocaine Screen Negative 04/14/21 Unknown U Marijuana (THC) Screen Negative 04/14/21 Unknown Drugs of Abuse Note Disclamer 04/14/21 Unknown Plasma/Serum Alcohol < 0.01 % (0-0.07) 04/13/21 10:28 Young/IV: Voiding Method Condom Catheter Active Medications - Current Medications Current Medications: Generic Name Dose Route Start Last Admin Trade Name Freq PRN Reason Stop Dose Admin Acetaminophen 650 mg 04/13/21 23:15 Acetaminophen 325 Mg Tab PO Q4H PRN Pain MILD(1-3)/Fever >100.5/LUIS Gabapentin 400 mg 04/14/21 08:00 Gabapentin 400 Mg Cap PO TID JONATHAN Hydromorphone HCl 0.5 mg 04/14/21 06:03 Hydromorphone 1 Mg/1 Ml Inj IV Q3H PRN Pain , Severe (7-10) Hydroxyzine HCl 25 mg 04/13/21 23:07 04/13/21 23:24 Hydroxyzine Hcl 25 Mg Tab PO 25 mg Q6H PRN Administration Itching Dextrose/Sodium Chloride 1,000 mls @ 100 mls/hr 04/13/21 23:45 04/14/21 00:10 D5ns IV 100 mls/hr DIRECT JONATHAN Administration Ketorolac Tromethamine 15 mg 04/14/21 06:01 Ketorolac 30 Mg/1 Ml Inj IV 04/19/21 06:00 Q6H PRN Pain, Moderate (4-6) Labetalol HCl 200 mg 04/13/21 23:45 04/13/21 23:24 Labetalol 200 Mg Tab PO 200 mg BID JONATHAN Administration Lorazepam 1 mg 04/14/21 06:02 Lorazepam 2 Mg/Ml Vial IV Q1H PRN CIWA-Ar 8-15 Metoclopramide HCl 10 mg 04/13/21 23:15 Metoclopramide 10 Mg/2 Ml Inj IV Q6H PRN Nausea And Vomiting Ondansetron HCl 4 mg 04/13/21 23:15 Ondansetron 4 Mg/2 Ml Inj IV Q8H PRN Nausea And Vomiting Pantoprazole Sodium 40 mg 04/14/21 10:00 Pantoprazole 40 Mg Tab PO QDAY JONATHAN Sodium Chloride 10 ml 04/13/21 23:45 04/14/21 01:01 Sodium Chloride 0.9% 10 Ml Flush Syringe IV Not Given BID JONATHAN Sodium Chloride 10 ml 04/13/21 23:15 Sodium Chloride 0.9% 10 Ml Flush Syringe IV PRN PRN LINE FLUSH Sucralfate 1 gm 04/14/21 07:30 Sucralfate 1 Gm Tab PO ACHS JONATHAN Zolpidem Tartrate 5 mg 04/13/21 23:07 04/14/21 00:25 Zolpidem 5 Mg Tab PO 5 mg QHS PRN Administration Sleep
[2021-04-14] MEDS ORDERED: GABAPENTIN 400 MG CAP PO SCH (08:00)
[2021-04-14] MEDS: SUCRALFATE 1 GM TAB PO SCH ×5 (08:33→22:26)
[2021-04-14] MEDS: GABAPENTIN 400 MG CAP PO SCH ×4 (08:34→22:26)
[2021-04-14] MEDS: PANTOPRAZOLE 40 MG TAB PO SCH ×2 (11:13→11:28)
[2021-04-14 13:43] LABS: Basophils % (Auto) 0.4 % (0.0-1.8); Eosinophils % (Auto) 0.4 % (0.0-4.3); Hematocrit 34.4 % (35.5-45.6); Hemoglobin 11.1 gm/dl (11.8-15.2); Lymphocytes # (Auto) 2.1 K/mm3 (1.2-5.4); Lymphocytes % (Auto) 21.6 % (13.4-35.0); Mean Corpuscular HGB Conc 32 % (32-34); Mean Corpuscular Volume 78 fl (84-94); Monocytes # (Auto) 1.6 K/mm3 (0.0-0.8); Monocytes % (Auto) 15.8 % (0.0-7.3); Platelet Count 313 K/mm3 (140-440); Red Blood Count 4.39 M/mm3 (3.65-5.03); Red Cell Distribution Width 19.6 % (13.2-15.2)
[2021-04-14 13:48] LABS: Alanine Aminotransferase 24 units/L (7-56); Albumin 4.2 g/dL (3.9-5); BUN/Creatinine Ratio 33; Blood Urea Nitrogen 30 mg/dL (9-20); Calcium 9.5 mg/dL (8.4-10.2); Hemolysis Index 2
--- NOTE | 2021-04-14 17:54 | Consultation ---
History of Present Illness - Reason for Consult Consult date: 04/14/21 Reason for consult: Opiate Use - Chief Complaint Chief complaint: Altered mental status for 48 hours - History of Present Psychiatric Illness Per Note: 60-year-old male presents to emergency department from home for girma luation of altered mental status. Patient has a history of COPD and hypertension. Patient is not on home oxygen. Patient had major bowel resection about 3 years ago. History is not clear but it appears to be small bowel resection secondary to small bowel obstruction and infection. Patient has a ileostomy/colostomy bag. Patient has TPN and medication administration via new ". Patient was recently treated at [place] for line sepsis and PICC line was removed on the right chest post was placed. Patient is morphine tablets 30 mg every 4 hours gabapentin 800 mg 3 times a day and zolpidem 5 mg nightly as needed. Patient is apparently altered and oriented x1 for the last 48 hours. Brought in because of worsening mental status. Patient is alert but not able to tell time place etc. Oriented to his spouse to some extent.. His pulses at the bedside and produce some history. No fever or chills. No urinary incontinence. No dysuria. No cough. Decline in mental status. Patient was apparently able to ambulate till 48 hours ago. The male standing next to the bedside claims that he is the for the last 7 years. The patient is a 60 year old male with a history of Depression and anxiety who presented to ED for evaluation of altered mental status. Patient was seen today resting in bed with his spouse at the bedside. Patient was tossing in bed and was not very verbal but nodded yes or no to most of the questions. Patient's spouse reports that patient started getting confused post discharge from [facility]. Patient endorses being depressed and having anxiety. Patient's spouse states he see a psychiatrist who placed him on Cymbalta, Remeron, Ativan and Am padma. Patient denies any current suicidal ideation and denies hallucinations. PAST PSYCHIATRIC HISTORY: Diagnoses:Depression, Anxiety Suicide attempts or Self-harm behavior: Denied Prior psychiatric hospitalizations: Denied Substance Abuse history: Denied Previous psychiatric medications tried: Cymbalta, Remeron, Ativan and Ambien (current) Outpatient treatment:yes PAST MEDICAL HISTORY: Family Psychiatric History: None reported or documented SOCIAL HISTORY Marital Status: Living Arrangements: Lives with spouse Employment Status: unemployed Access to guns/weapons: n/a Education: unknown History of Abuse: n/a Legal History: n/a REVIEW OF SYSTEMS Constitutional: Negative for weight loss ENT: Negative for stridor Respiratory: Negative for cough or hemoptysis All other systems reviewed and are negative MENTAL STATUS EXAMINATION General Appearance and Behavior: Age appropriate, good hygiene, wearing appropriate clothes, uncooperative polite with questioning. Cooperation: cooperative Psychomotor Behavior: Psychomotor agitation Mood: "depressed" Affect and affective range: congruent Thought Process: goal directed Thought Content: Denies SI Speech: Normal, low volume Intellectual Functioning: average Suicidal Ideation: Denied Homicidal Ideation: Denied hallucination: Denied Impulse Control: Intact Insight and Judgment: fair Memory: memory impaired Attention:Distractible Orientation: Alert and oriented Diagnoses: (1)Major Depressive Disorder:F33.1 (2) Anxiety Disorder, Unspecified Treatment Plan: Continue Home medications Start- Effexor 37.5mg po daily Patient should be compliant with medications and not to use drugs and not to drink alcohol. PSYCHOTHERAPY: Supportive psychotherapy provided MEDICAL: Per primary team DELIRIUM PRECAUTIONS: Please re-orient patient frequently, keep lights on during the day, and minimize benzodiazepines and opiates as these medications could worsen patient's confusion. 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 Will sign off Thank you for the consult. Please contact with any questions and/or concerns. Medications and Allergies Allergies Allergy/AdvReac Type Severity Reaction Status Date / Time No Known Allergies Allergy Unverified 04/14/21 03:58 Home Medications Medication Instructions Recorded Confirmed Last Taken Type Gabapentin [Neurontin] 800 mg PO TID 04/13/21 04/13/21 Unknown History LORazepam [Ativan] 1 mg PO BID 04/13/21 04/13/21 Unknown History Meloxicam [Mobic] 15 mg PO BID 04/13/21 04/13/21 Unknown History Morphine [Morphine TAB] 30 mg PO Q4HR 04/13/21 04/13/21 Unknown History Pantoprazole [Protonix] 40 mg PO QDAY 04/13/21 04/13/21 Unknown History RX: Omeprazole 40 mg PO QDAY 04/13/21 04/13/21 Unknown History Sucralfate [Carafate] 1 gm PO ACHS 04/13/21 04/13/21 Unknown History Zolpidem [Ambien] 5 mg PO QHS PRN 04/13/21 04/13/21 Unknown History hydrOXYzine HCL [Atarax] 25 mg PO Q6HR PRN 04/13/21 04/13/21 Unknown History labetaloL [Labetalol 200mg TAB] 200 mg PO BID 04/13/21 04/13/21 Unknown History methOCARBAMOL [Robaxin TAB] 750 mg PO BID 04/13/21 04/13/21 Unknown History Active Meds: Active Medications Acetaminophen (Acetaminophen 325 Mg Tab) 650 mg PO Q4H PRN PRN Reason: Pain MILD(1-3)/Fever >100.5/LUIS Gabapentin (Gabapentin 400 Mg Cap) 400 mg PO TID [facility] Last Admin: 04/14/21 15:39 Dose: 400 mg Documented by: Hydromorphone HCl (Hydromorphone 1 Mg/1 Ml Inj) 0.5 mg IV Q3H PRN PRN Reason: Pain , Severe (7-10) Hydroxyzine HCl (Hydroxyzine Hcl 25 Mg Tab) 25 mg PO Q6H PRN PRN Reason: Itching Last Admin: 04/13/21 23:24 Dose: 25 mg Documented by: Dextrose/Sodium Chloride (D5ns) 1,000 mls @ 100 mls/hr IV DIRECT [facility] Stop: 04/14/21 22:00 Last Admin: 04/14/21 00:10 Dose: 100 mls/hr Documented by: Amino Acids/Electrolytes/Dextrose (Tpn Adult) 2,400 mls @ 100 mls/hr IV ALEX Y@2000 [facility]; Protocol Stop: 04/15/21 19:59 Ketorolac Tromethamine (Ketorolac 30 Mg/1 Ml Inj) 15 mg IV Q6H PRN PRN Reason: Pain, Moderate (4-6) Stop: 04/19/21 06:00 Labetalol HCl (Labetalol 200 Mg Tab) 200 mg PO BID [facility] Last Admin: 04/14/21 11:27 Dose: Not Given Documented by: Lorazepam (Lorazepam 2 Mg/Ml Vial) 1 mg IV Q1H PRN PRN Reason: CIWA-Ar 8-15 Metoclopramide HCl (Metoclopramide 10 Mg/2 Ml Inj) 10 mg IV Q6H PRN PRN Reason: Nausea And Vomiting Ondansetron HCl (Ondansetron 4 Mg/2 Ml Inj) 4 mg IV Q8H PRN PRN Reason: Nausea And Vomiting Pantoprazole Sodium (Pantoprazole 40 Mg Tab) 40 mg PO QDAY [facility] Last Admin: 04/14/21 11:28 Dose: Not Given Documented by: Sodium Chloride (Sodium Chloride 0.9% 10 Ml Flush Syringe) 10 ml IV BID [facility] Last Admin: 04/14/21 11:14 Dose: 10 ml Documented by: Sodium Chloride (Sodium Chloride 0.9% 10 Ml Flush Syringe) 10 ml IV PRN PRN PRN Reason: LINE FLUSH Sucralfate (Sucralfate 1 Gm Tab) 1 gm PO ACHS [facility] Last Admin: 04/14/21 14:01 Dose: Not Given Documented by: Zolpidem Tartrate (Zolpidem 5 Mg Tab) 5 mg PO QHS PRN PRN Reason: Sleep Last Admin: 04/14/21 00:25 Dose: 5 mg Documented by: Mental Status Exam - Vital signs Last Vital Signs Temp 97.5 F L 04/14/21 15:15 Pulse 109 H 04/14/21 15:15 Resp 16 04/14/21 15:15 BP 154/97 04/14/21 15:15 Pulse Ox 97 04/14/21 15:15 Results Result Diagrams: 04/14/21 12:59 04/14/21 12:59 Abnormal lab results 04/14/21 04/14/21 Range/Units 12:59 12:59 Hgb 11.1 L (11.8-15.2) gm/dl Hct 34.4 L (35.5-45.6) % MCV 78 L (84-94) fl MCH 25 L (28-32) pg RDW 19.6 H (13.2-15.2) % [place] % (Auto) 15.8 H (0.0-7.3) % [place] # (Auto) 1.6 H (0.0-0.8) K/mm3 BUN 30 H (9-20) mg/dL Glucose 125 H (75-100) mg/dL Alkaline Phosphatase 199 H (35-129) units/L All other labs normal.
[2021-04-15] MEDS: ZOLPIDEM 5 MG TAB PO PRN ×2 (00:01→21:26)
[2021-04-15] MEDS: TOTAL PARENTERAL NUTRITION 2,400 ML IV SCH ×2 (06:27→10:27)
[2021-04-15 06:48] LABS: BUN/Creatinine Ratio 46; Blood Urea Nitrogen 37 mg/dL (9-20); Calcium 9.2 mg/dL (8.4-10.2); Hemolysis Index 16
[2021-04-15] MEDS: KETOROLAC 30 MG/1 ML INJ IV PRN (10:22)
[2021-04-15] MEDS: SUCRALFATE 1 GM TAB PO SCH ×4 (10:22→21:26)
[2021-04-15] MEDS: GABAPENTIN 400 MG CAP PO SCH (10:22)
[2021-04-15] MEDS: PANTOPRAZOLE 40 MG TAB PO SCH (10:22)
[2021-04-15] MEDS: VENLAFAXINE 37.5 MG TAB PO SCH (10:26)
--- NOTE | 2021-04-15 13:01 | Progress Note ---
Assessment and Plan (1) Encephalopathy acute Current Visit: Yes Status: Acute Plan to address problem: Probably secondary to excessive opiates and Gabapentin. Patient is on morphine 30 mg every 4 h I did cut morphine down to twice a day appears to be controlling patient's pain. No clear indication for being on morphine 30 mg every 4 hours Restarted opioids because patient states he was in severe pain. IV Tordol for now for moderate pain IV Dilaudid 0.5 mg every 3 for severe pain [facility] protocol for now for withdrawal symptoms-no withdrawal symptoms. Mental health/psych consult-complete. Patient stable does not need inpatient treatment. Gabapentin dose is decreased from 8 0 mg 3 times a day to 400 mg 3 times a day Physical therapy were requested Patient may need placement for opiate dependenc (2) Opiate dependence Current Visit: Yes Status: Chronic Qualifiers: Complication of substance-induced condition: with perceptual disturbance Plan to address problem: Patient was not started on morphine 30 mg every 4 hours. Patient will be managed with IV Toradol for moderate pain and IV Dilaudid for severe pain. Gabapentin also decreased from 800 mg 3 times a day to 400 mg 3 times a day. We will get mental health/psych consult. Regarding possible opiate dependence (3) Hyperkalemia Current Visit: Yes Status: Acute Plan to address problem: Mild IV Calcium gluconate for now (4) Hypertension Current Visit: Yes Status: Chronic Qualifiers: Hypertension type: essential hypertension Qualified Code(s): I10 - Es sential (primary) hypertension Plan to address problem: Continue labetalol and adjust medications (5) COPD (chronic obstructive pulmonary disease) Current Visit: Yes Status: Chronic Qualifiers: Emphysema type: unspecified Plan to address problem: On DuoNebs as needed (6) Microcytosis Current Visit: Yes Status: Chronic Plan to address problem: Check iron levels (7) Malnutrition Current Visit: Yes Status: Chronic Qualifiers: Protein-calorie malnutrition severity: unspecified severity Plan to address problem: Patient is on TPN because of extensive small bowel resection Dietitian consult requested (8) DVT prophylaxis Current Visit: Yes Status: Acute Plan to address problem: On Heparin Subjective Date of service: 04/15/21 Principal diagnosis: Acute encephalopathy Interval history: 60-year-old male presents to emergency department from home for evaluation of altered mental status. Patient has a history of COPD and hypertension. Patient is not on home oxygen. Patient had major bowel resection about 3 years ago. History is not clear but it appears to be small bowel resection secondary to small bowel obstruction and infection. Patient has a ileostomy/colostomy bag. Patient has TPN and medication administration via new ". Patient was recently treated at [place] for line sepsis and PICC line was removed on the right chest post was placed. Patient is morphine tablets 30 mg every 4 hours gabapentin 800 mg 3 times a day and zolpidem 5 mg nightly as needed. Patient is apparently altered and oriented x1 for the last 48 hours. Brought in because of worsening mental status. Patient is alert but not able to tell time place etc. Oriented to his spouse to some extent.. His pulses at the bedside and produce some his tory. No fever or chills. No urinary incontinence. No dysuria. No cough. Decline in mental status. Patient was apparently able to ambulate till 48 hours ago. The male standing next to the bedside claims that he is the for the last 7 years. Patient today is much more alert than yesterday. States his stomach feels bad but he usually does better with his pain pill which she does not know but he did note Protonix and sucralfate. I did speak with the patient's and stated he has been eating for quite some time and does not have difficulty eating anymore. TPN had been for supplementation. also stated that patient appeared to be coming around more toward his baseline. 04/14/2021 -Continue with TPN, nutritional supplementation. Dietitian consulted -PT OT evaluation and his is open for rehab if needed -We will continue to monitor 04/15/2021 -Patient much more alert today. Spoke with less confused more about baseline. -Potentially will not need rehab at this particular time. Anticipate discharge in a.m. Objective - Constitutional Vitals: Vital Signs - 12hr 04/15/21 04/15/21 05:00 05:04 Temperature 97.8 F Pulse Rate 124 H Respiratory 17 20 Rate Blood Pressure 146/95 O2 Sat by Pulse 95 Oximetry General appearance: Present: no acute distress, well-nourished - EENT Eyes: PERRL, EOM intact ENT: hearing intact, clear oral mucosa Ears: bilateral: normal - Neck Neck: supple, normal ROM - Respiratory Respiratory effort: normal Respiratory: bilateral: CTA - Breasts Breasts: normal - Cardiovascular Rhythm: regular Heart Sounds: Present: S1 & S2. Absent: gallop, rub Extremities: pulses intact, No edema, normal color, Full ROM - Gastrointestinal General gastrointestinal: Present: soft, non-tender, non-distended, normal bowel sounds - Genitourinary Male genitourinary: normal - Integumentary Integumentary: clear, warm, dry - Musculoskeletal Musculoskeletal: 1, strength equal bilaterally - Neurologic Neurologic: moves all extremities - Psychiatric Psychiatric: memory intact, appropriate mood/affect, intact judgment & insight - Labs CBC & Chem 7: 04/14/21 12:59 04/15/21 05:55 Labs: Abnormal lab results 04/14/21 04/14/21 04/15/21 Range/Units 12:59 12:59 05:55 Hgb 11.1 L (11.8-15.2) gm/dl Hct 34.4 L (35.5-45.6) % MCV 78 L (84-94) fl MCH 25 L (28-32) pg RDW 19.6 H (13.2-15.2) % [place] % (Auto) 15.8 H (0.0-7.3) % [place] # (Auto) 1.6 H (0.0-0.8) K/mm3 Carbon Dioxide 18 L (22-30) mmol/L BUN 30 H 37 H (9-20) mg/dL Glucose 125 H 110 H (75-100) mg/dL Alkaline Phosphatase 199 H (35-129) units/L
[2021-04-15] MEDS: MORPHINE 30 MG ER TAB PO SCH ×2 (14:08→21:26)
[2021-04-15] MEDS ORDERED: TOTAL PARENTERAL NUTRITION 2,000 ML IV SCH (20:00)
[2021-04-15] MEDS ORDERED: LORazepam 0.5 MG TAB PO ONE (23:21)
[2021-04-16] MEDS: KETOROLAC 30 MG/1 ML INJ IV PRN (04:18)
[2021-04-16] MEDS: SUCRALFATE 1 GM TAB PO SCH (08:28)
[2021-04-16] MEDS: MORPHINE 30 MG ER TAB PO SCH (09:29)
[2021-04-16] MEDS: VENLAFAXINE 37.5 MG TAB PO SCH (09:29)
[2021-04-16] MEDS: PANTOPRAZOLE 40 MG TAB PO SCH (09:30)
--- NOTE | 2021-04-16 10:58 | Discharge Summary ---
Providers - Providers Date of Admission: 04/14/21 11:07 Date of discharge: 04/16/21 Attending physician: JENIFER MARSHALL 04/13/21 Consult to Case Management [CONS] Routine Services Needed at Discharge: Home Health Services Physical Therapy Notified:: MONICA 04/13/21 23:20 Consult to Dietitian/Nutrition [CONS] Routine Physician Instructions: Reason For Exam: TPN Reason for Consult: Pt needs oral supplement 04/14/21 06:12 Physical Therapy Evaluation and Treat [CONS] Routine Comment: Opiate dependence Reason For Exam: Severe debility and altered sensorium 04/14/21 06:13 Consult to Mental Health [CONS] Routine Reason For Exam: Opiate dependence Consult to Physician [CONS] Routine Comment: Consulting Provider: HONEY CASTELLON Physician Instructions: Reason For Exam: Opiate dependence 04/15/21 14:14 Consult to Wound/ET Nurse [CONS] Routine Reason For Exam: wound eval: ostomy Primary care physician: NUCLE[employer]PERATOR Hospitalization Condition: Serious Pertinent studies: CT scan of head unremarkable. Last x-ray unremarkable. Hospital course: 60-year-old male presents to emergency department from home for evaluation of altered mental status. Patient has a history of COPD and hypertension. Patient is not on home oxygen. Patient had major bowel resection about 3 years ago. History is not clear but it appears to be small bowel resection secondary to small bowel obstruction and infection. Patient has a ileostomy/colostomy bag. Patient has TPN and medication administration via new ". Patient was recently treated at [facility] for line sepsis and PICC line was removed on the right chest post was placed. Patient is morphine tablets 30 mg every 4 hours gabapentin 800 mg 3 times a day and zolpidem 5 mg nightly as needed. Patient is apparently altered and oriented x1 for the last 48 hours. Brought in because of worsening mental status. Patient was admitted pain medications were held. Gabapentin was held. Patient returned quickly to baseline. Patient was able to tell me the medications. Most of the doses. Able to tell most of the phone numbers. Was alert and oriented to her his . Patient had no new concerns. Discussed his TPN. Back at baseline. Also stated when he was last admitted they told him that the gabapentin should be changed or cut down as well. Disposition: - TO HOME OR SELFCARE Final Discharge Diagnosis (Prints w/discharge instructions): Acute metabolic e ncephalopathy - Discharge Diagnoses (1) Encephalopathy acute Status: Acute Comment: Encephalopathy has resolved. Patient is back at baseline. Etiology most likely excessive opioids in conjunction with gabapentin. Patient has been educated on this. Will need to follow with pain management. I did speak to the . Patient is under the care of pain management and they are aware of the changes. Attempts to control his pain is been very difficult secondary to extensive surgery extensive small bowel. Will give patient is back on pain medication discontinue gabapentin follow-up with pain management 2 days. (2) Hyperkalemia Status: Resolved (3) COPD (chronic obstructive pulmonary disease) Status: Chronic Qualifiers: Emphysema type: unspecified Comment: Stable no wheezing no shortness of breath no dips on exertion. (4) Hypertension Status: Chronic Qualifiers: Hypertension type: essential hypertension Qualified Code(s): I10 - Essential (primary) hypertension Comment: At present very well controlled continue present management. Labetalol 200 twice daily. (5) Malnutrition Status: Chronic Qualifiers: Protein-calorie malnutrition severity: unspecified severity Comment: Extensive small bowel surgery. Resume pain medications with morphine. We will also restart TPN. Have discussed with case management patient receives TPN from [facility]. Will be there has been discussed as well. Patient also can receive p.o. feedings. Discussed that with the states patient has been eating. TPN has been supplementation. (6) Opiate dependence Status: Chronic Qualifiers: Complication of substance-induced condition: with perceptual disturbance Core Measure Documentation - Palliative Care Palliative Care/ Comfort Measures: Not Applicable - Core Measures Any of the following diagnoses?: none Exam - Constitutional Vitals: Temp Pulse Resp BP Pulse Ox 98.4 F 102 H 18 134/78 100 04/16/21 03:57 04/16/21 09:30 04/16/21 03:57 04/16/21 09:30 04/16/21 03:57 General appearance: Present: no acute distress, well-nourished - EENT Eyes: Present: PERRL ENT: hearing intact, clear oral mucosa - Neck Neck: Present: supple, normal ROM - Respiratory Respiratory effort: normal Respiratory: bilateral: CTA - Cardiovascular Heart Sounds: Present: S1 & S2. Absent: rub, click - Extremities Extremities: pulses symmetrical, No edema Peripheral Pulses: within normal limits - Abdominal General gastrointestinal: Present: soft, non-tender, non-distended, normal bowel sounds Male genitourinary: Present: normal - Integumentary Integumentary: Present: clear, warm, dry - Musculoskeletal Musculoskeletal: gait normal, strength equal bilaterally - Psychiatric Psychiatric: appropriate mood/affect, intact judgment & insight - Neurologic Neurologic: CNII-XII intact, moves all extremities Plan Activity: up only with assistance Weight Bearing Status: Full Weight Bearing Diet: regular, other (TPN) Special Instructions: other (TPN as previously ordered.) Follow up with: PRIMARY CARE, [Primary Care Provider] - 7 Days Prescriptions: Sucralfate [Carafate] 1 gm PO ACHS #20 Morphine [Morphine TAB] 30 mg PO Q4HR #20 Morphine ER [Ms Contin ER] 30 mg PO Q12HR #60 tablet Omeprazole 40 mg PO QDAY #20 Pantoprazole [Protonix TAB] 40 mg PO QDAY #30
[2021-04-16 12:12] VITALS: BP 112/76
== END 2021-04-16 13:30 | disposition home health service (06) | DRG 71 ==
LOC: ED 09:29 → 3A 11:07 → OBSVTOIN 04-14 11:07
PROVIDERS: ADMIT Internal Medicine; ATTEND Internal Medicine
DX: G93.41 Metabolic encephalopathy (principal); F33.1 Major depressive disorder, recurrent, moderate; E46 Unspecified protein-calorie malnutrition; F11.222 Opioid dependence with intoxication with perceptual disturbance; E87.5 Hyperkalemia; I10 Essential (primary) hypertension; J44.9 Chronic obstructive pulmonary disease, unspecified; F41.9 Anxiety disorder, unspecified; F17.200 Nicotine dependence, unspecified, uncomplicated; Z79.899 Other long term (current) drug therapy; G89.29 Other chronic pain; Z82.49 Family history of ischemic heart disease and other diseases of the circulatory system; R71.8 Other abnormality of red blood cells
CPT/HCPCS: 36415; 70450; 71045; 80048; 80053; 80307; 80320; 81001; 82140; 82550; 83735; 84100; 84443; 85025; 85610; G0378; G0480; J0610; J1885; J2060; J7042